=== PATIENT | female | born 1995 | race American Indian/Alaskan Native ===

== ENCOUNTER 2018-01-14 18:41 | Outpatient (CLI) | payer MEDICAID ==
[2018-01-14 19:19] VITALS: BP 119/78
== END 2018-01-14 20:05 | disposition home or self-care (01) ==
LOC: TRG 18:41
PROVIDERS: ATTEND Obstetrics & Gynecology
DX: O42.92 Full-term premature rupture of membranes, unspecified as to length of time between rupture and onset of labor (principal); O26.893 Other specified pregnancy related conditions, third trimester; M79.604 Pain in right leg
CPT/HCPCS: 59025

== ENCOUNTER 2018-01-19 23:58 | Inpatient (IN) | payer MEDICAID ==
[2018-01-20] MEDS ORDERED: VISTARIL PO ONE (01:47)
[2018-01-20] MEDS ORDERED: SUBLIMAZE IV PRN ×2 (03:18→09:00)
[2018-01-20] MEDS: STADOL IV PRN ×2 (03:38→06:18)
[2018-01-20 03:43] LABS: Hemoglobin 12.3 gm/dl (10.1-14.3); Mean Corpuscular HGB Conc 33 % (30-34); Mean Corpuscular Hemoglobin 30 pg (28-32); Mean Corpuscular Volume 89 fl (79-97); Platelet Count 161 K/mm3 (140-440); Red Blood Count 4.14 M/mm3 (3.65-5.03); Red Cell Distribution Width 12.8 % (13.2-15.2)
[2018-01-20] MEDS: LACTATED RINGERS 1,000 ML IV SCH ×5 (04:30→10:12)
--- NOTE | 2018-01-20 07:26 | Anesthesia Consultation ---
Anesthesia Consult and Med Hx Date of service: 01/20/18 - Airway Anesthetic Teeth Evaluation: Good ROM Head & Neck: Adequate Mental/Hyoid Distance: Adequate Mallampati Class: Class II Intubation Access Assessment: Probably Good - Pre-Operative Health Status ASA Pre-Surgery Classification: ASA2 Proposed Anesthetic Plan: Epidural, Spinal - Pulmonary Hx Asthma: No COPD: No Hx Pneumonia: No - Cardiovascular System Hx Hypertension: No - Central Nervous System Hx Seizures: No Hx Psychiatric Problems: No - Endocrine Hx Renal Disease: No Hx End Stage Renal Disease: No Hx Hypothyroidism: No Hx Hyperthyroidism: No - Hematic Hx Anemia: No Hx Sickle Cell Disease: No - Other Systems Hx Alcohol Use: No
[2018-01-20] MEDS ORDERED: ePHEDrine SULFATE IV PRN ×2 (08:00→09:00)
[2018-01-20] MEDS ORDERED: fentaNYL-BUPIV 2 MCG/ML-0.125% 200 MCG/100 ML BAG EPIDURAL SCH (08:00)
[2018-01-20] MEDS ORDERED: NARCAN 2 MG/2 ML IV PRN (08:00)
--- NOTE | 2018-01-20 08:39 | History and Physical Report ---
History of Present Illness Date of examination: 01/20/18 Date of admission: 01/20/18 03:14 History of present illness: 22 yo LMP EDC 01/20/18 @ 40 weeks arrived in active labor. Transfer patient into care at 29 weeks. Uncomplicated course. GBS negative Past History Past Medical History: no pertinent history Past Surgical History: no surgical history Family/Genetic History: none Social history: no significant social history - Obstetrical History Expected Date of Delivery: 01/20/18 Actual Gestation: 40 Week(s) 0 Day(s) : 1 Medications and Allergies Allergies Allergy/AdvReac Type Severity Reaction Status Date / Time No Known Allergies Allergy Verified 01/20/18 01:58 Home Medications Medication Instructions Recorded Confirmed Last Taken Type No Known Home Medications [No 01/20/18 01/20/18 Unknown History Reported Home Medications] Active Meds: Active Medications Butorphanol Tartrate (Stadol) 2 mg IV Q2H PRN PRN Reason: Labor Pain Last Admin: 01/20/18 06:18 Dose: 2 mg Ephedrine Sulfate (Ephedrine Sulfate) 10 mg IV Q2M PRN PRN Reason: Hypotension Ephedrine Sulfate (Ephedrine Sulfate) 10 mg IV Q2M PRN PRN Reason: Hypotension Fentanyl (Sublimaze) 100 mcg IV Q1HR PRN PRN Reason: Labor Pain Fentanyl (Sublimaze) 100 mcg IV Q2H PRN PRN Reason: Labor Pain Lactated Ringer's (Lactated Ringers) 1,000 mls @ 125 mls/hr IV DIRECT ANTONIO Last Admin: 01/20/18 08:16 Dose: 125 mls/hr Fentanyl/Bupivacaine/Sodium Chlor (Fentanyl-Bupiv 2 Mcg/Ml-0.125%) 200 mcg in 100 mls @ 12 mls/hr EPIDURAL TITR ANTONIO; Protocol Last Admin: 01/20/18 08:13 Dose: 12 mls/hr Oxytocin/Sodium Chloride (Pitocin/Ns 30 Unit/500ml) 30 units in 500 mls @ 4 mls /hr IV TITR ANTONIO; Protocol Lactated Ringer's (Lactated Ringers) 1,000 mls @ 125 mls/hr IV DIRECT ANTONIO Oxytocin/Sodium Chloride (Pitocin/Ns 20 Unit/1000ml Drip) 20 units in 1,000 mls @ 125 mls/hr IV DIRECT ANTONIO Oxytocin/Sodium Chloride (Pitocin/Ns 30 Unit/500ml) 30 units in 500 mls @ 1 mls /hr IV TITR ANTONIO; Protocol Lidocaine (Xylocaine 2%) 20 ml INFILTRATI ONCE ONE Stop: 01/20/18 07:47 Mineral Oil (Mineral Oil) 30 ml PO QHS PRN PRN Reason: Constipation Nalbuphine HCl (Nubain) 10 mg IV Q2H PRN PRN Reason: Pain, Moderate (4-6) Naloxone HCl (Narcan 2 Mg/2 Ml) 0.2 mg IV Q5M PRN PRN Reason: Respiratory sedation Naloxone HCl (Narcan 0.4 Mg/1 Ml) 0.1 mg IV Q2MIN PRN PRN Reason: Res Rate </= 8 or 02 SAT < 92% Ondansetron HCl (Zofran) 4 mg IV Q8H PRN PRN Reason: Nausea And Vomiting Terbutaline Sulfate (Brethine) 0.25 mg SUB-Q ONCE PRN PRN Reason: Hyperstimulation/Hypertonicity Terbutaline Sulfate (Brethine) 0.25 mg IVP ONCE PRN PRN Reason: Hyperstimulation/Hypertonicity Review of Systems All systems: negative - Vital Signs Vital signs: Vital Signs Temp Resp 98.4 F 18 01/20/18 00:13 01/20/18 00:13 Temp Pulse Resp BP Pulse Ox 98.5 F 64 20 121/73 99 01/20/18 03:34 01/20/18 08:31 01/20/18 03:38 01/20/18 08:22 01/20/18 08:31 - Physical Exam Genitourinary (Female): Positive: normal external genitalia - Obstetrical FHR: category 1 Uterine Contraction Monitor Mode: External Cervical Dilatation: 6 Cervical Effacement Percentage: 90 station: -1 Uterine Contraction Frequency (min): 2 Uterine Contraction Pattern: Regular Uterine Tone Measurement Phase: Resting Uterine Contraction Intensity: Strong/Firm Results Result Diagrams: 01/20/18 03:24 Abnormal lab results 01/20/18 Range/Units 03:24 RDW 12.8 L (13.2-15.2) % All other labs normal. Assessment and Plan A: IUP at term Active Labor Reactive tracing P:Active [place]'t
[2018-01-20] MEDS ORDERED: PITOCin/NS 30 UNIT/500ML 30,000 MILLIUNITS/500 ML BAG IV ONE (08:57)
[2018-01-20] MEDS ORDERED: PITOCin/NS 30 UNIT/500ML 30 UNITS/500 ML BAG IV SCH ×3 (09:00)
[2018-01-20] MEDS ORDERED: NARCAN 0.4 MG/1 ML IV PRN (09:00)
[2018-01-20] MEDS ORDERED: ZOFRAN IV PRN ×2 (09:00→13:19)
[2018-01-20] MEDS ORDERED: NUBAIN IV PRN (09:00)
[2018-01-20] MEDS ORDERED: LACTATED RINGERS 1,000 ML IV SCH (09:00)
[2018-01-20] MEDS ORDERED: BRETHINE IVP PRN (09:00)
[2018-01-20] MEDS ORDERED: XYLOCAINE 2% INFILTRATI NR (09:00)
[2018-01-20] MEDS ORDERED: BRETHINE SUB-Q PRN (09:00)
[2018-01-20] MEDS ORDERED: PITOCin/NS 20 UNIT/1000ML DRIP 20 UNITS/1,000 ML BAG IV SCH (09:00)
[2018-01-20] MEDS ORDERED: MINERAL OIL PO PRN (09:00)
--- NOTE | 2018-01-20 13:11 | Procedure Note ---
OB Delivery Note - Delivery Date of Delivery: 01/20/18 (7-5oz female @ 1232) Surgeon: CHUCK SANCHEZ Estimated blood loss: 200cc - Vaginal Delivery presentation: vertex Delivery position: OA Intrapartum events: none Delivery induction: none Delivery augmentation: rupture of membranes, pitocin Delivery monitor: external FHT, external uterine Route of delivery: Delivery placenta: spontaneous Delivery cord: 3 umbilical vessels Delivery laceration: 2nd degree (repaired with 3.[address] under epidural and local anethesia) Delivery repair: vicryl (3.[address] 1) Anesthesia: epidural - Infant A at 1 minute: 8 at 5 minutes: 9 Infant Gender: Female (Pushed for of female under epidural anethesia. Stimulated to cry and placed skin to skin. Cord cut by mom. Cord blood collected. Spont. placenta, intact, byrd. Pitocin infusing. Repair of second degree laceration as noted. EBL 200)
[2018-01-20] MEDS ORDERED: BENADRYL PO PRN (13:19)
[2018-01-20] MEDS ORDERED: LANSINOH TP PRN (13:19)
[2018-01-20] MEDS ORDERED: TUCKS PAD TP PRN (13:19)
[2018-01-20] MEDS ORDERED: TYLENOL PO PRN (13:19)
[2018-01-20] MEDS ORDERED: MILK OF MAGNESIA PO PRN (13:19)
[2018-01-20] MEDS ORDERED: PHENERGAN PR PRN (13:19)
[2018-01-20] MEDS ORDERED: DULCOLAX PR PRN (13:19)
[2018-01-20] MEDS ORDERED: NORCO 5/325 PO PRN (13:19)
[2018-01-20] MEDS ORDERED: PHENERGAN PO PRN (13:19)
[2018-01-20] MEDS ORDERED: SODIUM CHLORIDE FLUSH SYRINGE 10 ML IV NR (14:00)
[2018-01-20] MEDS: MOTRIN PO SCH ×2 (16:21→20:35)
[2018-01-21 02:18] LABS: Hematocrit 28.6 % (30.3-42.9); Hemoglobin 9.5 gm/dl (10.1-14.3)
[2018-01-21] MEDS: MOTRIN PO SCH ×2 (03:38→09:30)
--- NOTE | 2018-01-21 08:39 | Progress Note ---
Assessment and Plan O: VSS AF PP: H/H: 9.5/28.6 A: Stable PP Day 1 Anemia P: Iron BID Discharge Subjective - Subjective Date of service: 01/21/18 Interval history: 22 yo LMP EDC 01/20/18 @ 40 weeks arrived in active labor. Transfer patient into care at 29 weeks. Uncomplicated course. GBS negative Patient reports: appetite normal, voiding normally, pain well controlled, ambulating normally [place]: doing well, nursing well, bottle feeding Objective - Vital Signs Latest vital signs: Vital Signs Temp Pulse Resp BP BP Pulse Ox 01/21/18 04:00 98.6 F 66 14 114/78 01/20/18 23:40 98.6 F 77 16 110/50 01/20/18 20:00 98.6 F 71 16 110/68 01/20/18 15:25 99.6 F 70 16 128/78 99 01/20/18 13:56 84 98 01/20/18 13:54 83 68 L 01/20/18 13:51 96 H 96 01/20/18 13:46 88 98 01/20/18 13:41 89 97 01/20/18 13:36 79 99 01/20/18 13:31 88 99 01/20/18 13:27 91 H 92 01/20/18 13:26 86 100 01/20/18 13:21 88 100 01/20/18 13:09 108 H 115/59 01/20/18 13:08 31 L 88 01/20/18 12:51 88 119/64 01/20/18 12:37 114 H 138/85 01/20/18 12:23 90 120/73 01/20/18 12:17 94 H 99 01/20/18 12:13 18 01/20/18 12:12 81 99 01/20/18 12:07 82 110/68 99 01/20/18 12:02 86 99 01/20/18 11:57 73 98 01/20/18 11:53 83 120/72 01/20/18 11:52 75 98 01/20/18 11:47 73 98 01/20/18 11:42 79 99 01/20/18 11:38 73 116/71 01/20/18 11:37 74 100 01/20/18 11:32 91 H 99 01/20/18 11:27 79 99 01/20/18 11:22 76 120/72 98 01/20/18 11:17 84 100 01/20/18 11:12 82 99 01/20/18 11:09 81 121/72 01/20/18 11:07 71 100 01/20/18 11:02 80 100 01/20/18 10:57 84 100 01/20/18 10:52 80 142/86 100 01/20/18 10:47 71 99 01/20/18 10:42 71 99 01/20/18 10:38 63 146/85 01/20/18 10:37 63 98 01/20/18 10:32 66 98 01/20/18 10:27 66 98 01/20/18 10:23 63 126/79 01/20/18 10:22 65 98 01/20/18 10:17 67 99 01/20/18 10:13 16 01/20/18 10:12 79 98 01/20/18 10:07 65 130/80 99 01/20/18 10:02 69 99 01/20/18 09:57 67 99 01/20/18 09:53 59 L 137/83 01/20/18 09:52 63 99 01/20/18 09:47 63 99 01/20/18 09:42 62 100 01/20/18 09:37 67 132/89 100 01/20/18 09:32 73 100 01/20/18 09:27 76 100 01/20/18 09:23 67 133/83 01/20/18 09:22 64 100 01/20/18 09:17 62 100 01/20/18 09:12 67 100 01/20/18 09:07 76 107/55 100 01/20/18 09:02 73 100 01/20/18 08:57 75 100 01/20/18 08:54 17 L 01/20/18 08:52 81 124/73 76 L 01/20/18 08:49 86 83 L 01/20/18 08:47 83 100 01/20/18 08:42 72 99 01/20/18 08:41 87 Intake and Output 01/20/18 01/21/18 01/21/18 22:59 06:59 14:59 Intake Total 500 Output Total 800 1400 Balance -800 -900 Intake: Oral 200 Intake, Free Water 300 Output: Urine 800 1400 Void 800 1400 Other: Total, Intake Amount 200 Total, Output Amount 800 800 # Voids Void 1 1 - Exam Breasts: Present: deferred Abdomen: Present: normal appearance. Absent: distention, tenderness Uterus: Present: normal, firm, fundal height below umbilicus. Absent: bogginess , tenderness Extremities: Present: normal - Labs Labs: Abnormal lab results 01/21/18 Range/Units 01:31 Hgb 9.5 L (10.1-14.3) gm/dl Hct 28.6 L D (30.3-42.9) %
--- NOTE | 2018-01-21 08:42 | Discharge Summary ---
Providers - Providers Date of Admission: 01/20/18 03:14 Date of discharge: 01/21/18 Attending physician: TAYLOR ROJAS Primary care physician: TAYLOR ROJAS Hospitalization Reason for admission: active labor, IUP at term Delivery: Episiotomy: none Laceration: 2nd degree Other procedures: none complications: none Discharge diagnosis: IUP at term delivered [place] baby: female Condition at discharge: Good Disposition: DC-01 TO HOME OR SELFCARE Plan - Discharge Medications Prescriptions: Ferrous Sulfate [Feosol 325 MG tab] 325 mg PO BID #120 tablet HYDROcodone/APAP 5-325 [[place] 5-325 mg TAB] 2 each PO Q6H PRN #20 tablet PRN Reason: Pain, Moderate (4-6) Ibuprofen [Motrin 600 MG tab] 600 mg PO Q6H PRN #30 tablet PRN Reason: Pain - Provider Discharge Summary Activity: routine, no sex for 6 weeks, no heavy lifting 4 weeks, no strenuous exercise Diet: routine Instructions: routine Additional instructions: [] Smoking cessation referral if applicable(refer to patient education folder for contact #) [] Refer to [facility] Booklet Call your doctor immediately for: * Fever > 100.5 * Heavy vaginal bleeding ( >1 pad per hour) * Severe persistent headache * Shortness of breath * Reddened, hot, painful area to leg or breast * Drainage or odor from incision. * Keep incision clean and dry at all times and follow doctor's instructions regarding bathing/showering - Follow up plan Follow up: TAYLOR ROJAS MD [Primary Care Provider] - ILYA HIDALGO MD [Staff Physician] - (RTO 4 weeks )
[2018-01-21] MEDS ORDERED: PRENATAL VITAMIN PO SCH (10:00)
[2018-01-21 17:07] VITALS: BP 128/87
== END 2018-01-21 16:35 | disposition home or self-care (01) | DRG 775 ==
LOC: TRG 23:58 → LD 01-20 03:14 → OB 01-20 16:04
PROVIDERS: ADMIT Obstetrics & Gynecology; ATTEND Obstetrics & Gynecology
PROC: 10E0XZZ Delivery of Products of Conception, External Approach (ICD-10-PCS; principal; 2018-01-20)
PROC: 0KQM0ZZ Repair Perineum Muscle, Open Approach (ICD-10-PCS; 2018-01-20)
PROC: 3E0R3BZ Introduction of Anesthetic Agent into Spinal Canal, Percutaneous Approach (ICD-10-PCS; 2018-01-20)
PROC: 00HU33Z Insertion of Infusion Device into Spinal Canal, Percutaneous Approach (ICD-10-PCS; 2018-01-20)
DX: O70.1 Second degree perineal laceration during delivery (principal); Z37.0 Single live birth; Z3A.40 40 weeks gestation of pregnancy; O90.81 Anemia of the puerperium; D64.9 Anemia, unspecified
CPT/HCPCS: 36415; 85014; 85018; 85027; 86592; 86850; 86900; 86901; 99211; A6250; G0463; J0595; J2300; J2590; J7120; Q0177